=== PATIENT | male | born 1960 | race Caucasian/White ===

== ENCOUNTER 2018-06-10 01:54 | Inpatient (IN) | payer OTHER ==
[2018-06-09 14:16] LABS: INR 1.03
[~2018-06-10] VITALS: Ht 177.8 cm; Wt 96.2 kg
[2018-06-10] VITALS (12 sets, daily range): BP systolic 107–134; BP diastolic 62–108
[~2018-06-10 01:54] MED LIST: CELE-1 PO
[2018-06-10] MEDS ORDERED: fentaNYL CITR 100 MCG/2 ML AMP ONE (09:52)
[2018-06-10] MEDS ORDERED: ONDANSETRON 4 MG/2 ML VIAL ONE (09:54)
[2018-06-10] MEDS ORDERED: PROPOFOL EMUL(*) 10MG/ML 20 ML 20 ML ONE (09:54)
[2018-06-10] MEDS ORDERED: DEXAMETHASONE SOD PHOS 10MG/ML ONE (09:54)
[2018-06-10] MEDS ORDERED: ACETAMINOPHEN 500 MG TAB PO ONE (11:00)
[2018-06-10] MEDS ORDERED: BACITRACIN 50000 UNIT/VIAL 100,000 UNIT in NS 0.9% 3000 ML IRRIGATION BAG 3,000 ML IR ONE (11:00)
[2018-06-10] MEDS ORDERED: cloNIDine EPIDUR INJ 100MCG/ML 40 MCG, ROPIVACAINE 0.5% 20 ML VIAL 25 ML, EPINEPHrine H... EPI ONE (11:00)
[2018-06-10] MEDS ORDERED: NORMOSOL R SOLN(*) 1000 ML BAG 1,000 ML IV PRN (11:00)
[2018-06-10] MEDS ORDERED: MIDAZOLAM 2 MG/2 ML VIAL IVP PRN (11:00)
[2018-06-10] MEDS ORDERED: CELECOXIB 200 MG CAP PO ONE (11:00)
[2018-06-10] MEDS ORDERED: PREGABALIN 150 MG CAPSULE PO ONE (11:00)
[2018-06-10] MEDS ORDERED: TRANEXAMIC AC 1000 MG/10ML SDV 1,000 MG in DEXTROSE 5% 50 ML BAG 50 ML IV ONE (11:00)
[2018-06-10] MEDS ORDERED: ceFAZolin(*) 2GM/D5W 50ML 50 ML IVPB ONE (11:00)
[2018-06-10] MEDS ORDERED: FAMOTIDINE 20 MG TAB PO ONE (11:00)
[2018-06-10] MEDS ORDERED: LIDOCAINE/SOD BICARB 8.4% SYR ID ONE (11:00)
[2018-06-10] MEDS ORDERED: KETAMINE HCL 200 MG/20 ML MDV ONE (12:41)
[2018-06-10] MEDS ORDERED: GLYCOPYRROLATE 0.2MG/ML 1 ML INJ ONE (12:45)
[2018-06-10] MEDS ORDERED: LIDOCAINE 2% JELLY 5 ML TUBE ONE (12:49)
[2018-06-10] MEDS ORDERED: VASOPRESSIN 20 UNIT/ML VIAL ONE (12:59)
[2018-06-10] MEDS ORDERED: PROMETHAZINE 25 MG/ML 1 ML AMP IVP PRN (15:05)
[2018-06-10] MEDS ORDERED: diphenhydrAMINE 50 MG/ML VIAL IVP PRN (15:05)
[2018-06-10] MEDS ORDERED: PROMETHAZINE HCL(*) 25 MG SUPP PR PRN (15:05)
[2018-06-10] MEDS ORDERED: BENZOCAINE/MENTHOL 1 EACH LOZG PO PRN (15:05)
[2018-06-10] MEDS ORDERED: BISACODYL 10 MG SUPP PR PRN (15:05)
[2018-06-10] MEDS ORDERED: FLUSH 10 ML SYR IVP PRN (15:05)
[2018-06-10] MEDS ORDERED: LR 1000 ML BAG 1000 ML IV PRN (15:05)
[2018-06-10] MEDS ORDERED: MAGNESIUM CITRATE 300 ML BTL PO PRN (15:05)
[2018-06-10] MEDS ORDERED: MAGNESIUM HYDROXIDE* 30ML UDCP PO PRN (15:05)
[2018-06-10] MEDS ORDERED: diphenhydrAMINE 25 MG CAP PO PRN (15:05)
[2018-06-10] MEDS ORDERED: ZOLPIDEM TARTRATE 5 MG TAB PO PRN (15:05)
[2018-06-10] MEDS ORDERED: ONDANSETRON 4 MG/2 ML VIAL IVP PRN (15:05)
--- NOTE | 2018-06-10 15:46 | RADIOLOGY IMAGING REPORT ---
FACILITY: [facility] - [place] PATIENT NAME: Javad Kim : 1960 MR: [id number] V: [id number] EXAM DATE: ORDERING PHYSICIAN: LAURA POLLOCK TECHNOLOGIST: Location: [facility] [place] Patient: Javad Kim : 1960 Visit/Account:[id number] Date of Sevice: 06/10/2018 KNEE LIMITED LEFT Indication: Postop knee Comparison: None available Findings: There are postoperative changes from three part total knee arthroplasty. Components appear well seat ed. No abnormalities noted. IMPRESSION: 1. Unremarkable left TKA Report Dictated By: Sal Ruano at 06/10/2018 3:33 PM Report E-Signed By: Sal Ruano at 06/10/2018 3:41 PM WSN:[id number]
--- NOTE | 2018-06-10 17:25 | Hospitalist Progress Note ---
Subjective Progress Notes Subjective No cp/sob. 125cc of EBL. 1600cc of crystalloid, TXA and dexamethasone given intra-op. Physical Exam Vital Signs Date Time Temp Pulse Resp B/P (MAP) Pulse Ox O2 Delivery O2 Flow Rate FiO2 06/10/18 17:15 97.2 70 14 120/75 (90) 95 Room Air Intake and Output 06/11/18 06:59 Intake Total 2820 ml Output Total 125 ml Balance 2695 ml Intake Oral 720 ml IV Total 1850 ml Other 250 ml Output Estimated Blood Loss 125 ml General Appearance: Alert, Awake, No Acute Distress Cardiovascular: Regular Rate and Rhythm Respiratory: Clear to Auscultation Extremities: No Edema Assessment and Plan Problems: (1) Status post knee replacement Status: Acute Assessment & Plan: No CV/pulmonary issues. He denies a h/o of DVT/PE. He will be on ASA 325mg a day for 30 days after surgery for blood clot prevention. Exam Sepsis Risk: No Definite Risk Problem Qualifiers (1) Status post knee replacement: Laterality: right Qualified Codes: Z96.651 - Presence of right artificial knee joint GARCIA BURKS MD Jun 10, 2018 17:25
[2018-06-10] MEDS ORDERED: NS(*) 0.9% 250 ML BAG 250 ML in NS(*) 0.9% 250 ML BAG 250 ML IV PRN (20:00)
[2018-06-10] MEDS: ceFAZolin(*) 2GM/D5W 50ML 50 ML IVPB SCH (20:31)
[2018-06-10] MEDS: HYDROmorphone HCL 2 MG/ML SDV IVP PRN (20:32)
[2018-06-10] MEDS ORDERED: ASPIRIN 325 MG TAB PO SCH (21:00)
[2018-06-10] MEDS ORDERED: NS(*) 0.9% 250 ML BAG 250 ML ONE (22:16)
[2018-06-11 02:00] VITALS: BP 124/86
--- NOTE | 2018-06-11 04:19 | OPERATIVE REPORT 1 ---
EVENT DATE: June 10, 2018 SURGEON: Rai Nathan MD ANESTHESIOLOGIST: Nabil Curry MD ANESTHESIA: General plus spinal. STONE REPAIRER: ZECHARIAH Morales PREOPERATIVE DIAGNOSES 1. Left knee osteoarthritis. 2. Retained hardware. POSTOPERATIVE DIAGNOSES 1. Left knee osteoarthritis. 2. Retained hardware. PROCEDURE PERFORMED 1. Left total knee arthroplasty. 2. Removal of implant deep x two. FINDINGS The patient had a significant amount of arthritic changes within the knee itself , and also the two screws from the prior ACL reconstruction which needed to be removed in order to facilitate the total knee. ESTIMATED BLOOD LOSS About 200 mL. DRAINS None. COMPLICATIONS None. TOURNIQUET TIME About 20 minutes, which was only up during cementation. IMPLANTS [employer] avolution posterior stabilized total knee system with an #8 left posterior stabilized femur, #8 rotating platform cemented base plate, 8 x 10 rotating platform, posterior stabilized poly and a 38 anatomic patella. SPECIMENS None. INDICATIONS AND HISTORY This patient is a 57-year-old male who presented to my clinic for evaluation of left knee pain and irrigation going on for some time. He had prior surgeries with a knee arthroscopy and ACL reconstruction and also a knee scope. Unfortunately, he failed all conservative management and continued to have arthritic changes associated with the knee, so he wanted to go ahead with a total knee arthroplasty in the near future. The risks and benefits were discussed with the patient, and informed consent was obtained at the last clinic visit. We talked about the implications of having a total knee arthroplasty at the age of 57 and having to likely have a revision, and so he said he understood that and wanted to go ahead with that today. DESCRIPTION OF PROCEDURE The patient was brought into the Operating Room. He and the procedure were both verified. He was placed supine on the operative table and induced and intubated by Anesthesia after being given a spinal. Then the left leg was prepped and draped in the usual fashion and time out was observed, verifying the correct patient and procedure. The standard incision was then made over the anterior aspect of the knee through the skin and subcutaneous tissue. I utilized his old incision in order to do this, and then was able to go down through the skin and subcutaneous tissue and identify the medial parapatellar approach. Once I was able to identify the medial parapatellar approach, I was then able to go through the medial parapatellar approach without any difficulty, and then peel the MCL back in order to expose the distal screw in the tibia. I then removed this with a screwdriver without any difficulty, and then packed the area with a small amount of bone graft. I then irrigated with copious amounts of saline, which I did throughout the case using a pulsatile lavage. I then was able to remove the patellar fat pad, and also the anterior aspects of the medial and lateral menisci. I was then able to then sublux the patella over to the lateral side, and then also remove some of the synovitis over the anterior aspect of the femur just proximal to the joint surface and then removed some osteophytes and loose fragments throughout the area. I then high flexed the knee, and then was able to remove the ACL and PCL without any difficulty. I then removed the second screw in the femur, as I needed to do this in order to prep the femur. I then was able to drill the intramedullary guide through the central portion of the femur, and then used the intramedullary guide from the avolution system set on 5 and 9 left in order to then cut the 9 mm off the distal femur. Using the jigs after they had been in place, we cut the 9 mm off, and then I sized the femur to a size 8. This was then followed by a 4-in-1 cutting block, where we cut the standard cuts, and this looked good, and so therefore the 8 was the final component chosen. I then cut the notch with the 8 notch cutting block without any difficulty, and then removed the osteophytes off the posterior aspect of the femur. I then turned attention back to the tibia, where I was able to drill the central portion of the tibia and use the intramedullary guide once again set on 0. I was then able to cut a couple millimeters off the medial side, which was the low side, and then cut off a symmetrical portion of the tibia, which was asymmetrical going in, to make it good within alignment. I then utilized the alignment jennifer to make sure everything was in good position associated with this cut, and then also with the tibial tray. I sized it to an 8 tibial tray, which looked like it was in good position and had good alignment associated with it. We then prepped the tibia without any difficulty and then put in the trial component. Once I had the trial components in, we started with a 7 mm poly. Unfortunately , this was not quite big enough. We went all the way up to the 10, which then had excellent extension, and then a good stability as with anterior posterior drawer type test. This was then followed by everting the patella and then cutting the patella, cutting 9.5 mm off the patella, and then putting on a size 38 anatomic patella without any difficulty with the trial and drilling the holes. Everything tracked well and had good stability, and so therefore the tourniquet was then put up. All the components were cemented in place, starting with the tibia and then followed by the femur and then the patella. There was a hard portion fo the patella, and so therefore we did build up a little bit of cement on this area after cutting it down just to even out the patella in particular, and it did track well and stayed in contact throughout the entire flexion and extension arc. I then irrigated with copious amounts of saline and let the tourniquet down after 20 minutes when the cement was hardened, and then closed the medial parapatellar approach with a #2 Stratafix. This was then followed by 2-0 Vicryl in the subcutaneous fat, and then subcutaneous 2-0 Stratafix throughout the skin, then a 4-0 Monocryl. This was then followed by a Bioclusive dressing , and then the standard dressing and soft dressing, and then the patient was awakened and extubated and transferred to PACU in stable condition. We did inject a joint cocktail just after cementation. MIMI
[2018-06-11] MEDS: ceFAZolin(*) 2GM/D5W 50ML 50 ML IVPB SCH ×2 (04:31→11:54)
[2018-06-11] MEDS: HYDROmorphone HCL 2 MG/ML SDV IVP PRN (04:38)
[2018-06-11 06:00] VITALS: BP 98/64
[2018-06-11 07:16] VITALS: BP 121/82
[2018-06-11] MEDS ORDERED: ASPI-757 PO (08:45)
--- NOTE | 2018-06-11 08:48 | Hospitalist Progress Note ---
Subjective Progress Notes Subjective He has no complaints this morning. He had no acute events overnight. Patient Complains of: Cardiovascular: No: Chest Pain Respiratory: No: Shortness of Breath Physical Exam Vital Signs Date Time Temp Pulse Resp B/P (MAP) Pulse Ox O2 Delivery O2 Flow Rate FiO2 06/11/18 07:16 97.6 55 16 121/82 (95) 94 Room Air 06/10/18 22:00 0.5 General Appearance: Alert, Awake, No Acute Distress, Afebrile Neuro: No Gross deficits Cardiovascular: Regular Rate and Rhythm Respiratory: No Respiratory Distress, Clear to Auscultation Psych: Alert & Oriented X3, Appropriate Mood & Affect Result Diagram: 06/11/18 0533 Assessment and Plan Problems: (1) Status post knee replacement Status: Acute Assessment & Plan: No CV/pulmonary issues. He denies a h/o of DVT/PE. He will be on ASA 325mg a day for 30 days after surgery for blood clot prevention. Exam Sepsis Risk: No Definite Risk Problem Qualifiers (1) Status post knee replacement: Laterality: right Qualified Codes: Z96.651 - Presence of right artificial knee joint GENEVA TRAMMELL [employer] Jun 11, 2018 08:48
[2018-06-11] MEDS ORDERED: OXYC-865 PO (08:57)
[2018-06-11 12:04] VITALS: BP 120/78
[2018-06-11 13:30] VITALS: Ht 177.8 cm; Wt 96.2 kg
== END 2018-06-11 13:35 | disposition home or self-care (01) | DRG 470 ==
LOC: OR 01:54 → MED 16:12 → OBSVTOIN 16:12
PROVIDERS: ADMIT Orthopaedic Surgery; ATTEND Orthopaedic Surgery
PROC: 0SP Lower Joints, Removal (ICD-10-PCS; 2018-06-10)
PROC: 0SRD0J9 Replacement of Left Knee Joint with Synthetic Substitute, Cemented, Open Approach (ICD-10-PCS; principal; 2018-06-10 12:30)
DX: M17.12 Unilateral primary osteoarthritis, left knee (principal)
CPT/HCPCS: 36415; 85014; 85018; 85610; 86850; 86900; 86901; 97161; C1713; C1776; J0171; J0690; J0735; J1100; J1170; J1885; J2250; J2405; J2704; J2795; J3010; J3490; J7050; J7060